=== PATIENT | female | born 1935 | race Caucasian/White ===

== ENCOUNTER → 2020-09-11 | Outpatient (CLI) | payer MEDICARE ==
[2020-09-11 16:12] LABS: HCT 38.3 % (34.0-46.0); HGB 12.5 gm/dL (11.4-16.0); MCHC 32.6 g/dL (31.0-37.0); MCV 85.9 fL (80.0-100.0); Mean Platelet Volume 7.7; Platelet Count 352 k/uL (150-450); RBC 4.46 m/uL (3.80-5.40); WBC 14.7 k/uL (3.8-10.6)
== END | disposition home or self-care (01) ==
LOC: LABPAT 15:40
PROVIDERS: ATTEND Internal Medicine Interventional Cardiology
DX: Z01.812 Encounter for preprocedural laboratory examination (principal); I35.0 Nonrheumatic aortic (valve) stenosis
CPT/HCPCS: 36415; 80051; 82565; 84520; 85027

== ENCOUNTER 2020-09-20 05:50 | Day surgery (SDC) | payer MEDICARE ==
[2020-09-17 15:00] VITALS: BMI 31.1
[2020-09-20] MEDS ORDERED: ALPRAZolam 0.25 MG TAB PO PRN (06:08)
[2020-09-20] MEDS ORDERED: SODIUM CHLORIDE 0.9% 1,000 ML in EMPTY BAG 1 BAG IV ONE (06:08)
[2020-09-20] MEDS ORDERED: ALPRAZolam 0.5 MG TAB PO PRN (06:08)
[2020-09-20] MEDS ORDERED: NITROGLYCERIN SL TABS 0.4 MG TAB SUBLINGUAL PRN (06:08)
[2020-09-20] MEDS ORDERED: SODIUM CHLORIDE 0.9% 1,000 ML IV ONE (06:16)
[2020-09-20 06:44] VITALS: RESP 16; TEMP 71
[2020-09-20 06:45] LABS: Basophils % (A) 1 %; Eosinophils # (A) 0.1 k/uL (0-0.7); Eosinophils % (A) 1 %; HCT 40.7 % (34.0-46.0); HGB 13.6 gm/dL (11.4-16.0); Lymphocytes # (A) 2.6 k/uL (1.0-4.8); Lymphocytes % (A) 30 %; MCH 28.5 pg (25.0-35.0); MCHC 33.5 g/dL (31.0-37.0); MCV 85.2 fL (80.0-100.0); Mean Platelet Volume 6.9; Monocytes # (A) 0.6 k/uL (0-1.0); Monocytes % (A) 7 %; Neutrophils # (A) 5.2 k/uL (1.3-7.7); Neutrophils % (A) 59 %; Platelet Count 390 k/uL (150-450); RBC 4.78 m/uL (3.80-5.40); RDW 14.6 % (11.5-15.5); WBC 8.9 k/uL (3.8-10.6)
[2020-09-20] MEDS ORDERED: HEPARIN SODIUM,PORCINE 10,000 UNIT in SODIUM CHLORIDE 0.9% 1,000 ML IRRIGATION PRN (07:00)
[2020-09-20] MEDS ORDERED: HEPARIN SODIUM,PORCINE 2,500 UNIT in SODIUM CHLORIDE 0.9% 250 ML IRRIGATION PRN (07:00)
[2020-09-20] MEDS ORDERED: ATORVASTATIN 80 MG TAB PO ONE (07:00)
[2020-09-20] MEDS ORDERED: ASPIRIN 325 MG TAB PO ONE (07:00)
[2020-09-20] MEDS ORDERED: fentaNYL (PF) 50 MCG/ML 2 ML AMP ONE (07:16)
[2020-09-20] MEDS: BENZOCAINE SPRAY 1 CAN TOPICAL ONE ×2 (07:33→07:42)
[2020-09-20] MEDS ORDERED: MIDAZOLAM 2 MG/2 ML VIAL IVP ONE (07:48)
[2020-09-20] MEDS ORDERED: fentaNYL (PF) 50 MCG/ML 2 ML AMP IVP ONE (07:48)
[2020-09-20] MEDS ORDERED: IV FLUID CONTINUATION 1,000 ML IV ONE (08:08)
[2020-09-20] MEDS ORDERED: LIDOCAINE 1% INJ 10MG/ML (20 ML MDV) ONE (08:22)
[2020-09-20] MEDS ORDERED: VERAPAMIL 2.5 MG/ML 2 ML AMP ONE (08:22)
[2020-09-20] MEDS ORDERED: LIDOCAINE 1% INJ 10MG/ML (20 ML MDV) SQ ONE (08:24)
[2020-09-20] MEDS ORDERED: VERAPAMIL SYRINGE (5 MG/10 ML) INTRAARTER ONE (08:27)
[2020-09-20] MEDS ORDERED: HEPARIN SODIUM 1,000 UN/ML (10ML VL) ONE (08:29)
[2020-09-20] MEDS ORDERED: HEPARIN SODIUM 1,000 UN/ML (10ML VL) IVP ONE (08:30)
[2020-09-20] MEDS ORDERED: IOPAMIDOL-370 125ML BTL INJ ONE (08:36)
[2020-09-20] MEDS ORDERED: RX INFO: IV CONTRAST WAS GIVEN 1 EACH MISC MISCELLANE PRN (08:38)
[2020-09-20] MEDS ORDERED: SODIUM CHLORIDE 0.9% 1,000 ML IV SCH (08:45)
--- NOTE | 2020-09-20 10:08 | ECHOT ---
TRANSESOPHAGEAL ECHOCARDIOGRAM DATE OF SERVICE: 09/20/2020 PERFORMING PHYSICIAN: Blane Fletcher MD. PROCEDURE PERFORMED: Transesophageal echocardiogram. COMPLICATION: None. LEVEL OF SEDATION: Moderate with sedation length of 15 minutes. PROCEDURE DESCRIPTION: After obtaining informed consent, the patient was brought to the cardiac laboratory animal caretaker. Pulse oximetry and heart rate monitors were attached the patient. Subsequently, the patient was given a total of 2 mg of Versed and 50 mcg of fentanyl on divided doses. Subsequently, the transesophageal echocardiogram was advanced through the bite guard to the mid esophagus where 2D echocardiogram images as well as color Doppler, pulse Doppler, and continuous-wave Doppler were obtained from multiple angles. The procedure was completed without any complication. FINDINGS: The left ventricular dimension and systolic function appeared to be within normal limits. The ejection fraction appeared to be in the range of 50% to 55%. There was mild concentric LVH seen. The right ventricle appeared to be of normal size and function. The left atrium appeared to be dilated. The right atrium appeared to be within normal limits. The aortic valve appeared to be thickened and calcified and senile and seems to be a trileaflet valve with evidence of severe aortic stenosis with an area of 0.8 mm2 by planimetry and peak gradient of 69 and mean of 28 mmHg. Please note that the gradient was probably underestimated because I was of axis. The mitral valve appeared to be mildly thickened with moderate MR. There was mild tricuspid regurgitation and mild pulmonic insufficiency seen. CONCLUSION: 1. Normal left ventricular dimension and systolic function with EF at least of 55%. 2. Mild concentric left ventricular hypertrophy identified. 3. Normal left atrial appendage without any thrombus. 4. Intact interatrial septum by color-flow Doppler. 5. Trileaflet aortic valve with evidence of aortic sclerosis and severe aortic stenosis. 6. Thickened mitral valve leaflets with moderate mitral regurgitation. 7. Normal tricuspid valve and pulmonic valve. 8. No evidence of pericardial effusion. MMODL / IJN: [id number] /
--- NOTE | 2020-09-20 10:10 | CC ---
CARDIAC CATHETERIZATION REPORT DATE OF SERVICE: 09/20/2020 PERFORMING PHYSICIAN: Dr. Blane Fletcher PROCEDURE PERFORMED: Selective right and left coronary angiogram. INDICATION: Aortic stenosis. COMPLICATION: None. LEVEL OF SEDATION: Moderate with sedation length of 15 minutes. PROCEDURE DESCRIPTION: After obtaining an informed consent, the patient was brought to cardiac engineer geophysical laboratory. The right radial artery was cannulated using micropuncture technique and a micropuncture wire passed easily. Then I placed a 6-[place] sheath. I gave the patient 2 mg of verapamil IA and 5000 of heparin IV. Selective right and left coronary angiogram performed using JR4 and JL3.5 catheters. After that, the procedure was completed without any complication. SELECTIVE CORONARY ANGIOGRAM: 1. The RCA is a large caliber vessel. It is a dominant vessel, appeared to be angiographically normal. It bifurcates into PDA and PLV branches both appeared to be angiographically normal. 2. The left main is angiographically normal it bifurcates into LCX and LAD. 3. The LCX is a large caliber vessel and is a codominant vessel and appeared to be angiographically normal. 4. The LAD is a large caliber vessel. It appeared to be angiographically normal. It gives rise into multiple diagonal branches. CONCLUSION: Normal coronary angiogram. POSTPROCEDURE MANAGEMENT: The patient will be scheduled to undergo transcutaneous aortic valve replacement. MMODL / IJN: [id number] /
[2020-09-20 11:17] VITALS: BP 131/62
[2020-09-20 12:53] VITALS: PULSE 87
== END 2020-09-20 12:53 | disposition home or self-care (01) ==
LOC: CATHCVL 05:50
PROVIDERS: ATTEND Internal Medicine Interventional Cardiology
DX: I08.0 Rheumatic disorders of both mitral and aortic valves (principal); I11.0 Hypertensive heart disease with heart failure; I50.32 Chronic diastolic (congestive) heart failure; I44.0 Atrioventricular block, first degree; Z20.822 Contact with and (suspected) exposure to COVID-19; Z82.49 Family history of ischemic heart disease and other diseases of the circulatory system; Z79.82 Long term (current) use of aspirin; Z79.890 Hormone replacement therapy; Z79.899 Other long term (current) drug therapy; Z88.0 Allergy status to penicillin
CPT/HCPCS: 93312; 93320; 93325; 93454; 85025; 87635; C1894; C1769; J2250; J2001; J3010; J1644; Q9967